=== PATIENT | male | born 1995 | race Caucasian/White ===

== ENCOUNTER 2023-08-30 13:43 | Emergency (ER) | payer OTHER, SELFPAY ==
[2023-08-30 13:47] VITALS: BP 137/96
[2023-08-30 14:09] LABS: % Basophils 0.1 % (0-2); % Immature Granulocytes 0.3 % (0-0.5); % Lymphocytes 9.7 % (20.5-51.1); % Monocytes 5.1 % (1.7-9.3); % Neutrophils 84.8 % (42.2-75.2); Absolute Monocytes 0.5 10^3/uL (0.1-0.6); Hematocrit 43.7 % (39.0-52.0); Hemoglobin 15.5 g/dL (13.0-18.0); Mean Corp Hgb Conc. 35.5 g/dL (33.0-37.0); Mean Corpuscular Hgb 30.8 pg (27.0-31.0); Mean Corpuscular Volume 86.9 fL (80.0-94.0); Mean Platelet Volume 9.3 fL (7.4-10.4); Nucleated Red Blood Cells % 0 % (-); Platelet Count 250 10^3/uL (130-400); Red Blood Cell Count 5.03 10^6/uL (4.70-6.10); White Blood Cell Count 10.6 10^3/uL (4.8-10.8)
[2023-08-30 14:21] LABS: Lactic Acid 0.9 mmol/L (0.7-2.0)
[2023-08-30 14:22] LABS: ALT (SGPT) 58 U/L (0-50); AST (SGOT) 31 U/L (17-59); Albumin 4.9 g/dl (3.5-5.0); Alkaline Phosphatase 82 U/L (38-126); Blood Urea Nitrogen 14 mg/dl (9-20); Calcium 9.8 mg/dl (8.4-10.2); Carbon Dioxide 21 mmol/L (22-30); Chloride 102 mmol/L (98-107); Glucose 102 mg/dl (70-99); Potassium 3.8 mmol/L (3.5-5.1); Sodium 134 mmol/L (135-145); Total Bilirubin 0.8 mg/dl (0.2-1.3); Total Protein 8.3 g/dl (6.3-8.2); eGFR > 60.00
--- NOTE | 2023-08-30 16:33 | ED.GENMED ---
History of Present Illness
General
Chief Complaint: Skin Problem
Source: patient
Exam Limitations: none
Time Seen by Provider: 08/30/23 15:42
Nursing documentation reviewed up to this point in time: agreed with
Travel History
Have you had any contact with someone who has COVID-19?: No
Do you have any symptoms of coronavirus? Fever > 100 degrees, chills, cough, shortness of breath, sore throat, loss of taste or smell, muscle aches, or headache?: No
History of Present Illness
History of Present Illness:
27-year-old male presenting to the emergency department today with concerns of initially up like sensation 3 days ago to the left leg was seen at an urgent care 2 days ago was started on steroid and antibiotic had some purulent drainage today went
to the urgent care they sent him to the ER. Denies any fever or systemic symptoms any trouble swallowing or breathing he claims that he previously had lymphadenopathy which is since resolved he also noted swelling into his cheek that is also
resolved.
Past History
Past History
ED Past Medical History: None
ED Past Surgical History: None
Social History
Tobacco: Non-smoker
Alcohol: None
Drug: None
Personal: Single
Living: with family
Employment: Employed
Review of Systems
Review of Systems
Allergies reviewed?: Yes
All Other Systems: ROS reviewed and negative except as documented in HPI and ROS
Phy Exam
Physical Exam
Physical Exam:
GENERAL: Alert , in no apparent distress
EYE: pupils equal and reactive
NECK: Supple, no significant adenopathy.
ENT: o/p clr, mmm.
CARDIAC: Regular rate and rhythm .
LUNGS: Clear breath sounds bilaterally, no acute respiratory distress, no wheezes/rales/rhonchi
ABDOMEN: Soft, without focal tenderness, no r/g, no cvat
NEUROLOGICAL: Alert and oriented, no focal neuro deficits
SKIN: Left lower lip swelling and purulent drainage no extension to the dental mucosa posterior pharynx tongue or into the cheek no lymphadenopathy warm and dry, skin intact.
MUSCULOSKELETAL: No edema, well perfused.
PSYCH: Normal and appropriate interaction.
Course
Orders/Labs/Results
Orders:
Orders
08/30/23 13:57
CBC/With Diff [Complete Blood Count/With Diff] Urgent
Comprehensive Metabolic Panel Urgent
Lactic Acid Urgent
Blood Culture Urgent
PALMA Source: Blood/Venous
Specimen Description:
08/30/23 16:00
Sulfamethox./Trimethoprim Ds [Bactrim Ds 800 mg/160 mg] 1 tablet PO NOW STA
Abnormal Lab Results
08/30/23
13:57
Absolute Neuts (auto) 9.0 H 10^3/uL
(1.4-6.5)
Absolute Lymphs (auto) 1.0 L 10^3/uL
(1.2-3.4)
Neutrophils % 84.8 H %
(42.2-75.2)
Lymphocytes % 9.7 L %
(20.5-51.1)
Sodium 134 L mmol/L
(135-145)
Carbon Dioxide 21 L mmol/L
(22-30)
Creatinine 0.6 L mg/dL
(0.7-1.3)
Glucose 102 H mg/dl
(70-99)
ALT 58 H U/L
(0-50)
Total Protein 8.3 H g/dl
(6.3-8.2)
08/30/23 13:57
08/30/23 13:57
Vital Signs
Initial and Last Documented VS:
Initial Vital Signs
Temp Pulse Resp BP Pulse Ox
98.1 F 107 18 137/96 98
08/30/23 13:47 08/30/23 13:47 08/30/23 13:47 08/30/23 13:47 08/30/23 13:47
Last Documented Vital Signs
Temp Pulse Resp BP Pulse Ox
98.1 F 107 18 137/96 98
08/30/23 13:47 08/30/23 13:47 08/30/23 13:47 08/30/23 13:47 08/30/23 13:47
Procedures
Incision/Drainage/Joint Aspiration
Left Lower Lip:
Anethesia: 1% Lidocaine
Type of procedure: incise and drain
Nature of site: abscess
Description of abscess: less than 3cm
Loculations broken up: No
How much fluid was obtained?: small amount
Fluid description: purulent
Treatment: left open for drainage
MDM/Problems Addressed
MDM/Problems Addressed:
27-year-old male presenting to the emergency department today with concerns of an abscess to his left lower lip. He claims that otherwise the surrounding swelling has improved after receiving antibiotics. Also symptoms have improved after there is
been drainage to the left lower lip. Here we did an incision and drainage after doing a mental block with lidocaine. He tolerated this well. Moderate amount of purulent drainage. No systemic symptoms. I feel the patient is still safe for
outpatient management and was advised for very close outpatient follow-up and strict return precautions given for any worsening symptoms.
*Critical Care Note
Total Time (30-74mins, 75-104mins- exclusive of procedures): Not Applicable
ED Attending Note
-
Portions of this chart may have been created with voice recognition software.� Occasional wrong word or��sound alike� substitutions may have occurred due to the inherent limitations of voice recognition software.
Discharge Plan
Departure
Patient Disposition: Home (Routine Discharge)
Date of Disposition: 08/30/23
Time of Disposition: 16:36
Patient with high blood pressure during this ER visit?: No
Condition: Good
Covid-19: Not Applicable
Discharge Problem:
Abscess of lip
Instructions: Skin Abscess
Prescriptions:
New
sulfamethoxazole-trimethoprim [Bactrim DS] 800-160 mg tablet
1 tab PO BID 7 Days Qty: 14 0RF
Referrals:
Bart Duque CRNP [Family Provider] -
Activity Restrictions/Additional Instructions:
You came to the emergency department today with concerns of swelling discomfort to your left lower lip. This is an abscess and this was drained here. Please continue using warm compresses to the area to help facilitate drainage. Please take
Bactrim twice daily over the next week and follow close with the primary care doctor within the next few days for reassessment. Return to the emergency department immediately for any worsening, new or concerning symptoms.
Interventions
Interventions:
*Risk Screen - Suicide Last Done: 08/30/23 13:47
*General Assessment Last Done: 08/30/23 13:47
[2023-08-30] MEDS: BACTRIM DS 800 MG/160 MG 1 TABLET PO (16:38)
[2023-08-30 16:41] VITALS: BP 142/86
== END 2023-08-30 16:45 | disposition home or self-care (01) ==
LOC: EMR 13:43
PROVIDERS: Emergency Medicine; EMERGENCY PHYSICIAN Emergency Medicine; FAMILY PHYSICIAN Registered Nurse
DX: K13.0 Diseases of lips (principal)
CPT/HCPCS: 99283; 10060; 80053; 83605; 85025; 87040

== ENCOUNTER → 2023-11-05 18:18 | Outpatient (REF) | payer OTHER, SELFPAY | LOC: RAD 18:18 | PROVIDERS: ATTENDING PHYSICIAN Registered Nurse | DX: R22.2 Localized swelling, mass and lump, trunk (principal) | CPT/HCPCS: 71111 ==

== ENCOUNTER → 2024-01-17 17:02 | Outpatient (REF) | payer OTHER, SELFPAY | LOC: RAD 17:02 | PROVIDERS: ATTENDING PHYSICIAN Registered Nurse | DX: R22.2 Localized swelling, mass and lump, trunk (principal) | CPT/HCPCS: 76604 ==